=== PATIENT | female | born 1935 | race Caucasian/White ===

== ENCOUNTER 2022-09-24 13:14 | Inpatient (IN) ==
[2022-09-24] MEDS ORDERED: ACETAMINOPHEN 325 MG TABLET PO PRN (13:25)
[2022-09-24] MEDS ORDERED: SENNOSIDES 1 TABLET PO PRN (13:25)
[2022-09-24] MEDS ORDERED: METOPROLOL TARTRATE 5 MG/5 ML VIAL IV PRN (13:25)
[2022-09-24] MEDS ORDERED: MAGNESIUM SULFATE 2 GM/50 ML BAG IV PRN (13:25)
[2022-09-24] MEDS ORDERED: POTASSIUM CHLORIDE 20 MEQ TABLET PO PRN ×2 (13:25)
[2022-09-24] MEDS ORDERED: POLYETHYLENE GLYCOL 3350 17 GM PACKET PO PRN (13:25)
[2022-09-24] MEDS ORDERED: POTASSIUM CHLORIDE 40 MEQ in DEXTROSE 5% IN WATER 500 ML IV PRN (13:25)
[2022-09-24] MEDS ORDERED: ONDANSETRON 4 MG/2 ML VIAL IV PRN (13:25)
[2022-09-24] MEDS ORDERED: IPRATROPIUM/ALBUTEROL 3 ML AMPUL.NEB NEB PRN (13:25)
--- NOTE | 2022-09-24 13:25 | Internal Med History&Physical ---
HPI History of Present Illness Patient information: Note initiated : 09/24/22 at 1:25 pm Service Date, if different from initiated Date: [] Patient: Rosy Bai a 87 y/o F admitted on for Hip Fracture. Chief Complaint: [] History of present illness: Ms. Bai is a 87 year old F Presents to [facility] after a fall. Patient was visiting family when she tripped on the gravel falling on her left hip with immediate pain and unable to bear weight. Patient did not hit her head. She is on Eliquis for atrial fibrillation and last took this morning. Also has a history of chronic kidney disease hypertension hypothyroidism. Denies chest pain shortness of breath, headache. Vital signs are stable. Case is discussed with Dr. Coles who will perform orthopedic repair at [facility]. Review of Systems: Pertinent positives as above. Denies headache/fever/chills/nausea/vomiting/chest or abdominal pain/cough/dyspnea/diarrhea. Remaining 10 point review of system reviewed negative PHYSICAL EXAM General: Alert, Awake, No acute Distress Eyes/N/T: EOMI, no scleral icterus, PERRL, Head/Neck: neck supple, full ROM, normocephalic atraumatic CV: irreg, No murmurs, normal s1/s2 Pulm: Clear b/l, no wheezing/rhonchi/rales, no respiratory distress Abd: soft, nontender, +BS x4 Ext: no clubbing/cyanosis/edema, nontender Neuro: Alert, CN 2-12 grossly intact, no focal deficits, moves all extremities, , sensations intact b/l upper/lower Psychiatric: Skin: warm/dry, normal color PFSH PFSH All Active Problems (Updated 03/01/21 @ 09:33 by OLSET) Pyuria (Acute) History of foot surgery (Chronic ~03/2000) Status post D&C (Chronic ~1987) History of hernia repair (Chronic) History of tonsillectomy (Chronic ~1943) History of cholecystectomy (Chronic ~1991) History of bladder repair surgery (Chronic ~1986) History of meniscectomy of right knee (Chronic ~1990) History of lobectomy of thyroid (Chronic ~1976) History of colonoscopy (Chronic ~05/2016) Glaucoma (Chronic) Hyperthyroidism (Chronic) Hypertension (Chronic) Hyperlipidemia (Chronic) Anemia (Chronic) Postmenopausal status (Chronic) Urinary frequency (Chronic) Osteoarthritis of right knee (Chronic) Low back pain (Acute) Degenerative joint disease (Chronic) Seborrheic keratosis (Chronic) Adenomatous colon polyp (Chronic) Recurrent UTI (Chronic) Medical History Adenomatous colon polyp Anemia Degenerative joint disease Spine Glaucoma Hyperlipidemia Hypertension Hyperthyroidism Low back pain Osteoarthritis of right knee Postmenopausal status Recurrent UTI Seborrheic keratosis Urinary frequency Surgical History History of bladder repair surgery (~1986) History of cholecystectomy (~1991) History of colonoscopy (~05/2016) Dr. Izaguirre History of foot surgery (~03/2000) Left History of hernia repair History of lobectomy of thyroid (~1976) Right History of meniscectomy of right knee (~1990) History of tonsillectomy (~1943) Status post D&C (~1987) Family History Mother Heart disease Osteoporosis Sister Breast cancer Other Hypertension Stroke Social History marital status: unknown occupational status: retired physical activity: walking alcohol intake frequency: does not drink substance use type: does not use seatbelt use: always MEDS/ALLERGIES Home Medications and Allergies Home Medications Medication Instructions Recorded Confirmed Type brimonidine 0.1 % eye drops 1 drp ophthalmic (eye) TID 03/04/20 09/24/22 History (Alphagan P) conjugated estrogens 0.625 mg/gram 0.625 mg vaginal .2xWEEK 03/04/20 09/24/22 History vaginal cream (Premarin) latanoprost 0.005 % eye drops 1 drp ophthalmic (eye) QHS 03/04/20 09/24/22 History levothyroxine 100 mcg tablet 100 mcg PO QDAY 03/04/20 09/24/22 History oxybutynin chloride 5 mg tablet 5 mg PO BID 03/04/20 09/24/22 History pravastatin 40 mg tablet 40 mg PO QDAY 03/04/20 09/24/22 History timolol 0.5 % eye drops 1 drp ophthalmic (eye) QAM 03/04/20 09/24/22 History metoprolol succinate 50 mg 50 mg PO QDAY 09/24/22 09/24/22 History tablet,extended release 24 hr Allergies Allergy/AdvReac Type Severity Reaction Status Date / Time enalaprilat [From Vasotec] Allergy Intermediate Itching Verified 09/24/22 16:01 Sulfa Allergy Intermediate Itching Uncoded 09/24/22 16:02 A/P Narrative A/P Narrative: A: *Left hip fracture: *Chronic atrial fibrillation: On Eliquis/BB *CKD III: *HTN/HLD: *Hypothyroidism: Continue Synthroid *GERD: P: -Dr. Coles for orthopedic repair -Pain control -Monitor H&H/urine output/renal function -Monitor replace electrolytes as needed -check UA -Continue home BB, statin -Home medication reconciliation -PT/OT -CM for placement needs -ppx: SCD, Eliquis held for surgery and postop per Ortho / home PPI Time Spent With Patient Time: Total time spent is greater than 50% in coordination of care (as documented) at patient's floor/unit and/or counseling patient: Initial: Total time with patient: 55 - 74 minutes
[2022-09-24] MEDS: morphine 4 MG/ML VIAL IV PRN (15:58)
[2022-09-24] MEDS: 0.9 % SODIUM CHLORIDE 10 ML SYRINGE IV SCH ×3 (18:38→21:08)
[2022-09-24 19:08] LABS: Appearance,Urine HAZY (Clear); Bilirubin,Urine Negative (Negative); Calcium Oxalate Crystals,Urine FEW /hpf; Color,Urine AMBER; Culture Indicated,Urine yes; Glucose,Urine (UA) Negative (Negative); Ketones,Urine 5 mg/dL (Negative); Leukocyte Esterase,Urine 75 /uL (Negative); Mucus,Urine MANY /hpf; Nitrate,Urine Negative (Negative); Protein,Urine 30 mg/dL (Negative); Specific Gravity,Urine 1.032 (1.000-1.035); Urine Hyaline Cast 3 /lph (0-2); Urine RBC 111 /hpf (0-3); Urine Squamous Epithelial Cell < 1 /hpf (0-4); Urine WBC 16 /hpf (0-4); Urobilinogen,Urine Negative
[2022-09-24] MEDS: HYDROcodone/APAP 5/325MG TABLET PO PRN ×2 (19:19→23:59)
[2022-09-24] MEDS: DOCUSATE SODIUM 100 MG CAPSULE PO SCH (20:24)
[2022-09-24] MEDS: OXYBUTYNIN CHLORIDE 5 MG TABLET PO SCH (20:24)
[2022-09-24] MEDS: Brimonidine [Alphagan P] 0.1 % drops OP SCH (20:28)
[2022-09-24] MEDS: cefTRIAXone 1 GM VIAL IV SCH (21:08)
[2022-09-25] MEDS: morphine 4 MG/ML VIAL IV PRN (02:14)
[2022-09-25] MEDS: 0.9 % SODIUM CHLORIDE 10 ML SYRINGE IV SCH ×3 (05:54→21:33)
[2022-09-25 06:35] LABS: Basophils # (Auto) 0.04 K/mcL (0.00-0.30); Basophils % (Auto) 0.5 % (0.0-2.0); Eosinophils # (Auto) 0.17 K/mcL (0.00-0.70); Hemoglobin 12.6 g/dL (11.2-15.7); Lymphocytes # (Auto) 1.56 K/mcL (1.50-4.80); Lymphocytes % (Auto) 18.6 % (15.5-49.0); Mean Cell Volume 96.4 fL (80.0-100.0); Mean Corpuscular HGB Conc 31.5 g/dL (31.0-36.0); Mean Platelet Volume 9.7 fL (8.8-12.5); Monocytes # (Auto) 0.64 K/mcL (0.10-0.90); Monocytes % (Auto) 7.6 % (1.0-12.0); Neutrophils % (Auto) 70.9 % (38.0-78.0); Platelet Count 109 K/mcL (140-440); RBC 4.15 M/mcL (3.59-5.38); WBC 8.4 K/mcL (4.5-11.0)
[2022-09-25 06:57] LABS: ALT/SGPT 13 U/L (<40); AST/SGOT 22 U/L (<32); Albumin 3.4 gm/dL (3.2-5.2); Albumin/Globulin Ratio 1.4 (1.0-2.3); Alkaline Phosphatase 59 U/L (39-117); Bilirubin,Direct 0.3 mg/dL (<0.3); Bilirubin,Total 0.9 mg/dL (0.1-1.0); Blood Urea Nitrogen 34 mg/dL (8-23); Calcium 8.8 mg/dL (8.6-10.4); Carbon Dioxide 29 mmol/L (22-30); Chloride 101 mmol/L (96-108); Globulin 2.4 gm/dL (2.2-3.7); Glomerular Filtration Rate 51; Glucose 86 mg/dL (70-105); Lactate Dehydrogenase 220 U/L (135-225); Phosphorous 4.3 mg/dL (2.5-4.5); Triglycerides 65 mg/dL (<150)
[2022-09-25 06:59] LABS: INR 1.3 (0.9-1.1); Prothrombin Time 16.6 sec (11.9-14.5)
[2022-09-25] MEDS ORDERED: SCOPOLAMINE 1 PATCH PATCH TOPICAL PRN (07:00)
[2022-09-25] MEDS ORDERED: 0.9 % SODIUM CHLORIDE 250 ML IV ONE (07:49)
[2022-09-25] MEDS ORDERED: ROPIVACAINE HCL/PF 20 ML VIAL IJ ONE (07:50)
[2022-09-25] MEDS ORDERED: DEXAMETHASONE 10 MG/ML VIAL ONE (07:50)
[2022-09-25] MEDS ORDERED: PROPOFOL 200 MG/20 ML VIAL IV ONE (07:50)
[2022-09-25] MEDS ORDERED: PHENYLephrine 1 MG/10 ML SYRINGE (ANEST) ONE (07:50)
[2022-09-25] MEDS ORDERED: KETAMINE 50 MG/ML Syringe (ANEST) IV ONE (07:50)
[2022-09-25] MEDS ORDERED: MAGNESIUM SULFATE 2 GM/50 ML BAG IV ONE (07:50)
[2022-09-25] MEDS ORDERED: ONDANSETRON 4 MG/2 ML VIAL ONE (07:50)
[2022-09-25] MEDS ORDERED: TRANEXAMIC ACID 1,000 MG/10 ML VIAL ONE (07:50)
[2022-09-25] MEDS ORDERED: LIDOCAINE HCL/PF 100 MG/5 ML SYRINGE IV ONE (07:50)
--- NOTE | 2022-09-25 07:50 | Internal Med Progress Note ---
SUBJECTIVE Subjective Patient information: Note initiated : 09/25/22 at 7:45 am Service Date, if different from initiated Date: [] Patient: Rosy Bai a 87 y/o F admitted on 09/24/22 for Possible Broken Hip. Chief Complaint: [] Interval history: History of present illness: Ms. Bai is a 87 year old F Presents to [facility] after a fall. Patient was visiting family when she tripped on the gravel falling on her left hip with immediate pain and unable to bear weight. Patient did not hit her head. She is on Eliquis for atrial fibrillation and last took this morning. Also has a history of chronic kidney disease hypertension hypothyroidism. Denies chest pain shortness of breath, headache. Vital signs are stable. Case is discussed with Dr. Coles who will perform orthopedic repair at [facility]. 09/25 Patient postop in recovery. Patient tolerated the procedure well. No overnight event or new complaints. Monitor urine output and vitals. Review of Systems: Pertinent positives as above. Denies headache/fe juan/chills/nausea/vomiting/chest or abdominal pain/cough/dyspnea/diarrhea. PHYSICAL EXAM General: Alert, Awake, No acute Distress Eyes/N/T: EOMI, no scleral icterus, Head/Neck: neck supple, full ROM, CV: irreg, No murmurs, Pulm: Clear b/l, no wheezing/rhonchi/rales, no respiratory distress Abd: soft, nontender, +BS x4 Ext: no clubbing/cyanosis/edema, nontender Neuro: Alert, no focal deficits, moves all extremities, , sensations intact b/l upper/lower Psychiatric: Skin: warm/dry, normal color Constitutional Vitals: Vital Signs Temp Pulse Resp BP Pulse Ox O2 Del Method O2 Flow Rate 97.5 F 90 16 125/77 94 Nasal Cannula 1 09/25/22 04:09 09/25/22 07:41 09/25/22 07:41 09/25/22 07:41 09/25/22 07:41 09/25/22 07:41 09/25/22 07:41 Period Temp Pulse Resp BP Sys/Scott Pulse Ox O2 Del Method O2 Flow Rate Last 24 Hr 97.4 F-98.1 F 82-90 16-18 106-125/68-77 92-94 Nasal Cannula- Room Air 1-4 Intake and Output 09/24/22 09/25/22 09/25/22 19:59 03:59 11:59 Intake Total 320 400 Output Total 150 100 Balance 170 400 -100 Weight 56.971 kg Intake & Output: Intake & Output 09/24/22 09/25/22 09/25/22 19:59 03:59 11:59 Intake Total 320 400 Output Total 150 100 Balance 170 400 -100 Weight 56.971 kg Intake: Oral 320 400 Output: Urine Catheter Amount 150 100 Other: Meal Dinner Percent of Meal Consumed 25% Urine Appearance Cloudy Cloudy Uretheral (Perales) Cloudy Urine Color Dark Yellow Dark Yellow Uretheral (Perales) Dark Yellow Urine Odor Normal OBJ DATA Labs 09/25/22 05:24 09/25/22 05:24 Labs: Abnormal Lab Results 09/25/22 09/25/22 09/25/22 05:24 05:24 05:24 Plt Count 109 L PT 16.6 H INR 1.3 H BUN 34 H Direct Bilirubin 0.3 H Total Protein 5.8 L Urine Appearance Urine Protein Urine Ketones Ur Leukocyte Esterase Urine RBC Urine WBC Calcium Oxalate Crystal Hyaline Casts Urine Mucus 09/24/22 18:40 Plt Count PT INR BUN Direct Bilirubin Total Protein Urine Appearance Hazy A Urine Protein 30 A Urine Ketones 5 A Ur Leukocyte Esterase 75 A Urine RBC 111 H Urine WBC 16 H Calcium Oxalate Crystal Few A Hyaline Casts 3 H Urine Mucus Many A Meds: Medications Acetaminophen (Acetaminophen 325 Mg Tablet) 650 mg PO Q6HP PRN; Protocol PRN Reason: Per Pain Protocol/Fever > 101 Hydrocodone Bitart/Acetaminophen (Hydrocodone/Apap 5/325mg Tablet) 1 tab PO Q4HP PRN PRN Reason: PAIN LEVEL 3-6 Last Admin: 09/24/22 23:59 Dose: 1 tab Albuterol/Ipratropium (Ipratropium/Albuterol 3 Ml Ampul.Neb) 3 ml NEB Q4HP PRN PRN Reason: Shortness Of Breath Atorvastatin Calcium (Atorvastatin 10 Mg Tablet) 10 mg PO QDAY DAGMAR Ceftriaxone Sodium (Ceftriaxone 1 Gm Vial) 1 gm IV Q24H DAGMAR; Protocol Last Admin: 09/24/22 21:08 Dose: 1 gm Docusate Sodium (Docusate Sodium 100 Mg Capsule) 100 mg PO BID DAGMAR Last Admin: 09/24/22 20:24 Dose: 100 mg Potassium Chloride 40 meq/ (Dextrose) 520 mls @ 130 mls/hr IV UD PRN PRN Reason: Potassium < 3 Magnesium Sulfate (Magnesium Sulfate) 2 gm in 50 mls @ 50 mls/hr IV UD PRN PRN Reason: Magnesium </= 1.6 Levothyroxine Sodium (Levothyroxine 100 Mcg Tablet) 100 mcg PO QAMAC [facility] Metoprolol Succinate (Metoprolol Succinate 50 Mg Tab.Xl.24h) 50 mg PO QDAY [facility] Metoprolol Tartrate (Metoprolol Tartrate 5 Mg/5 Ml Vial) 5 mg IV Q2HP PRN PRN Reason: Tachyarrhythmias HR>110 Morphine Sulfate (Morphine 4 Mg/Ml Vial) 0 mg IV Q3HP PRN PRN Reason: Pain Last Admin: 09/25/22 02:14 Dose: 1 mg Ondansetron HCl (Ondansetron 4 Mg/2 Ml Vial) 4 mg IV Q4HP PRN PRN Reason: Nausea And Vomiting Last Admin: 09/24/22 20:24 Dose: 4 mg Oxybutynin Chloride (Oxybutynin Chloride 5 Mg Tablet) 5 mg PO BID [facility] Last Admin: 09/24/22 20:24 Dose: 5 mg Brimonidine [ Alphagan P] 0.1 % Drops 1 dose OP TID [facility] Last Admin: 09/24/22 20:28 Dose: Not Given Timolol 0.5 % Drops 1 dose OP QAM [facility] Polyethylene Glycol (Polyethylene Glycol 3350 17 Gm Packet) 17 gm PO DAILYP PRN PRN Reason: Constipation Potassium Chloride (Potassium Chloride 20 Meq Tablet) 40 meq PO UD PRN PRN Reason: Potssium is 3-3.5 Potassium Chloride (Potassium Chloride 20 Meq Tablet) 40 meq PO UD PRN PRN Reason: Potassium < 3 Scopolamine (Scopolamine 1 Patch Patch) 1 patch TOPICAL PREOP PRN PRN Reason: Nausea And Vomiting Senna (Sennosides 1 Tablet) 2 tab PO DAILYP PRN PRN Reason: Constipation Sodium Chloride (0.9 % Sodium Chloride 10 Ml Syringe) 10 ml IV Q8 [facility] Last Admin: 09/25/22 05:54 Dose: 10 ml A/P Narrative A/P Narrative: A: *Left hip fracture: s/p ORIF (09/25) *UTI: *Chronic atrial fibrillation: On Eliquis/BB *CKD III: *HTN/HLD: *Hypothyroidism: Continue Synthroid *GERD: P: -Dr. Coles for orthopedic repair -Pain control -Monitor H&H/urine output/renal function -Monitor replace electrolytes as needed -Rocephin, pending UC -Continue home BB, statin -PT/OT -CM for placement needs -ppx: SCD, Eliquis held for surgery and postop per Ortho / home PPI Time Spent With Patient Time: Total time spent is greater than 50% in coordination of care (as documented) at patient's floor/unit and/or counseling patient: QUALITY VTE Deep Vein Thrombosis/Pulmonary Embolism Present on Admission: No
[2022-09-25] MEDS ORDERED: 0.9 % SODIUM CHLORIDE 250 ML IV SCH (08:00)
[2022-09-25] MEDS ORDERED: 0.9 % SODIUM CHLORIDE 1,000 ML IV SCH (08:00)
[2022-09-25] MEDS ORDERED: ceFAZolin 2 GM in DEXTROSE 5% IN WATER 50 ML IV SCH ×2 (08:12→09:00)
[2022-09-25] MEDS ORDERED: ONDANSETRON 4 MG/2 ML VIAL IV PRN (08:37)
[2022-09-25] MEDS ORDERED: fentaNYL 100 MCG/2 ML VIAL IV PRN (08:37)
[2022-09-25] MEDS ORDERED: NALOXONE HCL 0.4 MG/ML VIAL IV PRN (08:37)
[2022-09-25] MEDS ORDERED: PROMETHAZINE 25 MG/ML VIAL IV PRN (08:37)
[2022-09-25] MEDS ORDERED: MEPERIDINE 25 MG/ML VIAL IV PRN (08:37)
[2022-09-25] MEDS ORDERED: diphenhydrAMINE 50 MG/ML VIAL IV PRN (08:37)
[2022-09-25] MEDS ORDERED: IPRATROPIUM/ALBUTEROL 3 ML AMPUL.NEB NEB PRN (08:37)
[2022-09-25] MEDS ORDERED: LACTATED RINGERS 250 ML IV PRN (08:37)
[2022-09-25] MEDS ORDERED: ACETAMINOPHEN 1,000 MG/100 ML BAG IV ONE (08:37)
[2022-09-25] MEDS ORDERED: LACTATED RINGERS 1,000 ML IV SCH (08:45)
[2022-09-25] MEDS ORDERED: FLEETS ADULT ENEMA PR PRN (08:53)
[2022-09-25] MEDS ORDERED: BISACODYL 10 MG SUPP.RECT PR PRN (08:53)
[2022-09-25] MEDS ORDERED: BENZOCAINE/MENTHOL 1 LOZENGE PO PRN (08:53)
[2022-09-25] MEDS ORDERED: MAGNESIUM HYDROXIDE 30 ML ORAL.SUSP PO PRN (08:53)
--- NOTE | 2022-09-25 08:53 | Brief Operative Note ---
Brief Operative Note Date of procedure: 09/25/22 Pre-op diagnosis: Left displaced femoral neck fracture Post-op diagnosis: same Procedure: Open treatment with prosthetic hemiarthroplasty of left femoral neck fracture Grafts/Implants: Yes (Depuy Actis size 5 std femoral stem, +5 x 51 bipolar femoral head) Anesthesia: spinal Findings: displaced femoral neck fracture, good bone density Complications: none Surgeon: Mustapha Coles Industrial Education Teacher: Aneesh Cooper Estimated blood loss (cc): 150 Specimens Removed/Pathology: none sent Condition: stable Disposition: PACU
--- NOTE | 2022-09-25 09:56 | Consultation ---
DATE OF CONSULTATION: 09/25/2022 REQUESTING PROVIDER: Cooper Gaspar DO CONSULTING PROVIDER: Mustapha Coles MD REASON FOR CONSULTATION: Left hip fracture. HISTORY OF PRESENT ILLNESS: This is an 87-year-old female who tripped on her gravel driveway and fell, landing on her left hip. She had severe pain and unable to bear weight. She denied loss of consciousness. She was taken to [facility] and x-rays taken, which showed a displaced femoral neck fracture. She was then transferred down for definitive orthopedic care. She denies any other injury. Pain is worse with movement, better with immobility. PAST MEDICAL HISTORY: Positive for hypertension; hypothyroidism; atrial fibrillation, reportedly with Eliquis dosed yesterday morning; and glaucoma. MEDICATIONS: Can be reviewed in the chart, but significant for the Eliquis. ALLERGIES: ENALAPRIL AND SULFA. PAST SURGICAL HISTORY: Foot surgery, D and C, hernia repair, tonsillectomy, cholecystectomy, bladder repair, right knee meniscectomy, and thyroid lobectomy. SOCIAL HISTORY: She lives in [facility]. No alcohol or tobacco use. FAMILY HISTORY: Positive for mother with heart disease and osteoporosis. Sister with breast cancer. PHYSICAL EXAMINATION: VITAL SIGNS: This morning were blood pressure 125/77, pulse 90, respirations 16, and saturating 94% on 1 liter oxygen. GENERAL APPEARANCE: She appears her stated age, in no acute distress. She is oriented to person and place. Mood and affect are appropriate. HEART: Irregular. LUNGS: Clear bilaterally upper extremities and right lower extremity show no obvious evidence of injury and are normal to inspection, range of motion and stability and strength. Left lower extremity shows shortening and rotation with exquisite tenderness to any movement and grossly unstable. X-ray reviewed, shows a completely displaced left femoral neck fracture. IMPRESSION: Closed left femoral neck fracture in an 87-year-old otherwise active female. PLAN: I recommend proceeding with open treatment with prosthetic hemiarthroplasty of the left femoral neck fracture. I discussed with her and her daughter's risks of surgery, which include, but not limited to bleeding, possibly requiring transfusion; infection, possibly requiring implant removal and prolonged IV antibiotics; injury to nerves, blood vessels, other surrounding structures; anesthetic risks; leg length discrepancy; dislocation; fracture; DVT and pulmonary embolus risks; and the possibility of needing further surgery. She understands and wished to proceed. We are going to go ahead with that this morning. [email or web address] Job ID: [id number] Doc ID: [id number] Mustapha Coles MD
[2022-09-25] MEDS: LEVOTHYROXINE 100 MCG TABLET PO SCH (11:09)
[2022-09-25] MEDS: DOCUSATE SODIUM 100 MG CAPSULE PO SCH ×2 (12:02→21:30)
[2022-09-25] MEDS: ATORVASTATIN 10 MG TABLET PO SCH (12:02)
[2022-09-25] MEDS: OXYBUTYNIN CHLORIDE 5 MG TABLET PO SCH ×2 (12:02→21:30)
[2022-09-25] MEDS: METOPROLOL SUCCINATE 50 MG TAB.XL.24H PO SCH (12:03)
[2022-09-25] MEDS: HYDROcodone/APAP 5/325MG TABLET PO PRN ×2 (12:05→21:30)
--- NOTE | 2022-09-25 14:16 | XRay Report ---
CLINICAL INFORMATION: post op-left hip fracture COMPARISON: None. FINDINGS: Unipolar left hip prostheses is anatomically aligned. Mild degenerative changes seen in the right and both SI joints. Soft tissue swelling over the surgical site noted. IMPRESSION: Left unipolar hip prosthesis in anatomical alignment. Interpreted and Authenticated by: Eric Hodges 09/25/22
[2022-09-25] MEDS: cefTRIAXone 1 GM VIAL IV SCH (14:45)
[2022-09-25] MEDS: Timolol 0.5 % drops OP SCH (14:46)
[2022-09-25] MEDS: Brimonidine [Alphagan P] 0.1 % drops OP SCH ×3 (14:46→21:33)
[2022-09-25] MEDS: ceFAZolin 1 GM VIAL IV SCH (16:21)
[2022-09-25] MEDS ORDERED: LATANOPROST OPHTH DROPS 2.5ML BOTTLE OU SCH (21:00)
[2022-09-26] MEDS: ceFAZolin 1 GM VIAL IV SCH (00:04)
[2022-09-26] MEDS: 0.9 % SODIUM CHLORIDE 10 ML SYRINGE IV SCH ×3 (04:06→20:15)
[2022-09-26] MEDS: LEVOTHYROXINE 100 MCG TABLET PO SCH (06:54)
[2022-09-26] MEDS: HYDROcodone/APAP 5/325MG TABLET PO PRN ×2 (07:13→12:12)
[2022-09-26 07:18] LABS: Blood Urea Nitrogen 32 mg/dL (8-23); Calcium 8.7 mg/dL (8.6-10.4); Carbon Dioxide 27 mmol/L (22-30); Chloride 98 mmol/L (96-108); Glomerular Filtration Rate 58; Glucose 222 mg/dL (70-105)
--- NOTE | 2022-09-26 07:41 | Operative Note ---
DATE OF OPERATION: 09/25/2022 DATE OF PROCEDURE: 09/25/2022 PREOPERATIVE DIAGNOSIS: Left displaced femoral neck fracture. POSTOPERATIVE DIAGNOSIS: Left displaced femoral neck fracture. PROCEDURE PERFORMED: Open treatment with prosthetic hemiarthroplasty of the left femoral neck fracture using a DePuy Actis size 5 standard offset femoral stem; a +5, 28 mm inner head with a 51 mm bipolar head. SURGEON: Mustapha Coles M.D. TELESALES ADVISOR: Aneesh Cooper PA-C. This providers expertise and technical skill were required throughout the case. The PA assisted with preoperative coordination, intraoperative retraction, wound closure, and dressing and splint application, as well as postoperative documentation and care coordination. ANESTHESIA: General. DRAINS: None. SPECIMEN: Femoral head, which was discarded. ESTIMATED BLOOD LOSS: 150 mL. COMPLICATIONS: None. POSTOPERATIVE CONDITION: Stable. INDICATIONS FOR SURGERY: This is an 87-year-old female who yesterday sustained a ground level fall. She had severe pain and inability to bear weight. She reportedly was taking Eliquis for atrial fibrillation and had taken it that same day. She was transferred down for definitive orthopedic care. FINDINGS AT SURGERY: Displaced femoral neck fracture with remarkably good bone density. PROCEDURE IN DETAIL: The patient had been seen preoperatively and informed consent had been obtained after discussion of risks and benefits of surgery. Risks including, but not limited to, bleeding, possibly requiring transfusion; infection, possibly requiring implant removal and prolonged IV antibiotics; injury to nerves, blood vessels, other surrounding structures; anesthetic risks; dislocation, leg length discrepancy, fracture; DVT and pulmonary embolus risks; and the possibility of needing further revision surgery. She understood these risks and wished to proceed. The patient was taken to the operating room. General anesthesia induced. She was carefully positioned in the right lateral decubitus position and pressure points carefully padded. The left hip and lower extremity were carefully prepped and draped in normal sterile fashion and a timeout was performed verifying patient name, operative site, and plan. Ioban was used to cover all skin surfaces and a standard posterior approach incision was made with scalpel through skin and subcutaneous tissue. Hemostasis obtained with Bovie cautery, continued sharply down onto the IT band. We then undermined anterior and posterior and then irrigated with IrriSept. We incised the IT band in line with the skin incision, and then a Charnley retractor was placed. Trochanteric bursal tissue was removed and then fat was swept off of the short external rotators and then this was released off of their insertion into the posterior femur. I then T'd this with the capsule up to the acetabular rim. I did a freshening neck cut at the lowest level of the fracture. Fragments were removed and then a corkscrew was placed in the femoral head and this was levered out. This fit through a 52, but not through a 51, so we trialed a 51 after removing bone fragments from the acetabulum. This fit well, so we went ahead and exposed the proximal femur. A box osteotome was used to gain canal entry and then again began sequentially broaching with the ACTIS broaches. We initially stopped at a 4, which seated at our neck cut. I trialed the standard +1.5 head ball. This clearly seems short and not enough tension, so I jumped up to a 7.5 neck. This was better; however, still not particularly good tensioned, so at this point, I felt it was necessary to upsize our stem, so we removed the 4 trial and went to a 5. This did seat quite a bit higher. We went ahead then and removed this and opened a 5 standard offset ACTIS stem. I irrigated IrriSept down the femoral canal. After waiting a minute I pulse lavaged with saline, and then impacted the stem. This sat with our collar about 4 mm above the neck cut. I then trialed the 1.5 head ball. This reduced still relatively easily and leg seemed a touch short, so chose to open a +5 implant. This was assembled into a bipolar with a 51 outer head. I irrigated IrriSept on the stem. After a minute saline was irrigated and then we carefully dried the stem and then impacted the bipolar head on. We reduced the hip. It did not reduce excessive tension, felt to be adequate tension. I checked leg lengths. It looked like we were equal. I checked stability with flexion up to 90, and internal rotation to 90 and this was stable throughout, so we went ahead and placed the leg on a padded Alvardao. I irrigated IrriSept again, after a minute pulse lavaged with saline. Posterior capsule was repaired with a #5 FiberWire II [id number]. We then removed the Charnley and closed the IT band with two running #1 Vicryl stitches. Final IrriSept irrigation was done, after a minute final pulse lavage, and then fat was closed with #1 Vicryl, then a 2-0 Monocryl for subcutaneous, billy for skin. The leg was placed in an abductor wedge and patient was then turned supine, awakened, extubated, and transferred to recovery in stable condition. [email or web address] Job ID: [id number] Doc ID: [id number] Mustapha Coles MD
[2022-09-26] MEDS: DOCUSATE SODIUM 100 MG CAPSULE PO SCH ×2 (08:29→20:14)
[2022-09-26] MEDS: OXYBUTYNIN CHLORIDE 5 MG TABLET PO SCH ×2 (08:29→20:15)
[2022-09-26] MEDS: ATORVASTATIN 10 MG TABLET PO SCH (08:29)
[2022-09-26] MEDS: METOPROLOL SUCCINATE 50 MG TAB.XL.24H PO SCH (08:29)
[2022-09-26] MEDS: ENOXAPARIN 40 MG/0.4 ML SYRINGE SQ SCH (08:30)
--- NOTE | 2022-09-26 09:03 | XRay Report ---
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 This is a chronic stable finding, seen on prior abdomen CT done on 10/12/21. This is causing mild compressive atelectasis of the left lower lobe. There are streaky linear opacities in the right lung base which have fluctuated from one exam to the next and may be a combination of scar or discoid atelectasis. There is a tiny right-sided pleural effusion. The upper lung esteban are clear. There is no pulmonary vascular congestion. The heart size is within normal limits. A moderate rotatory scoliotic curvature is present in the thoracic and lumbar spine. Comparison with the most recent chest x-ray done on 05/26/22 shows improved aeration in both lung bases at this time. IMPRESSION: Large hiatus hernia Scar versus discoid atelectasis in both lung bases. Interpreted and Authenticated by: Yohan Anguiano 09/26/22
[2022-09-26] MEDS: Brimonidine [Alphagan P] 0.1 % drops OP SCH (09:20)
[2022-09-26] MEDS: Timolol 0.5 % drops OP SCH ×2 (09:21→20:15)
--- NOTE | 2022-09-26 10:41 | Internal Med Progress Note ---
SUBJECTIVE Subjective Patient information: Note initiated : 09/26/22 at 10:37 am Service Date, if different from initiated Date: [] Patient: Rosy Bai a 87 y/o F admitted on 09/24/22 for Possible Broken Hip. Chief Complaint: [] Additional PMFSH (Level 3 Only): Ms. Bai is a 87 year old F Presents to [facility] after a fall. Patient was visiting family when she tripped on the gravel falling on her left hip with immediate pain and unable to bear weight. Patient did not hit her head. She is on Eliquis for atrial fibrillation and last took this morning. Also has a history of chronic kidney disease hypertension hypothyroidism. Denies chest pain shortness of breath, headache. Vital signs are stable. Case is discussed with Dr. Coles who will perform orthopedic repair at [facility]. 09/25 Patient postop in recovery. Patient tolerated the procedure well. No overnight event or new complaints. Monitor urine output and vitals. 09/26. Patient is status post left hemiarthroplasty. Reported she ambulated with PT. She is requiring 4 L nasal cannula oxygen, low inspiratory volume. She does not use oxygen at baseline. Will order chest x-ray. Lab work from this morning not available Review of Systems: Pertinent positives as above. Denies headache/fever/chills/nausea/vomiting/chest or abdominal pain/c ough/dyspnea/diarrhea. PHYSICAL EXAM General: Alert, Awake, No acute Distress Eyes/N/T: EOMI, no scleral icterus, Head/Neck: neck supple, full ROM, CV: irreg, No murmurs, Pulm: Clear b/l, no wheezing/rhonchi/rales, no respiratory distress Abd: soft, nontender, +BS x4 Ext: Left hip status post hemiarthroplasty. Dressing on and appears clean, dry and intact, expected mild bruising Neuro: Alert, no focal deficits, moves all extremities, , sensations intact b/l upper/lower Psychiatric: Skin: warm/dry, normal color A: *Left hip displaced femoral neck fracture status post prosthetic hemiarthroplasty by Dr. Coles on 09/25 Acute hypoxic respiratory failure, requiring 4 L nasal cannula oxygen *UTI: Urine culture with no growth *Chronic atrial fibrillation: On Eliquis/BB *CKD III: *HTN/HLD: *Hypothyroidism: Continue Synthroid *GERD: P: -Continue pain control, PT OT Obtain CBC Obtain chest x-ray -Pain control -Monitor H&H/urine output/renal function -Monitor replace electrolytes as needed -We will discontinue ceftriaxone -Continue home BB, statin -CM for placement needs -ppx: SCD, Eliquis held for surgery and postop per Ortho / home PPI Disposition. SNF/swing bed Total time taken >50 min Constitutional Vitals: Vital Signs Temp Pulse Resp BP Pulse Ox O2 Del Method O2 Flow Rate 97.9 F 83 16 118/77 93 Nasal Cannula 4 09/26/22 07:56 09/26/22 07:56 09/26/22 07:56 09/26/22 07:56 09/26/22 07:56 09/26/22 07:56 09/26/22 07:56 Period Temp Pulse Resp BP Sys/Scott Pulse Ox O2 Del Method O2 Flow Rate Last 24 Hr 97.4 F-97.9 F 75-105 16-17 96-122/59-84 91-94 Nasal Cannula- Nasal Cannula 2-5 Intake and Output 09/25/22 09/26/22 09/26/22 19:59 03:59 11:59 Intake Total 1360 1400 Output Total 250 650 Balance 1110 750 Weight 68.901 kg Intake & Output: Intake & Output 09/25/22 09/26/22 09/26/22 19:59 03:59 11:59 Intake Total 1360 1400 Output Total 250 650 Balance 1110 750 Weight 68.901 kg Intake: IV 1000 Sodium Chloride 0.9% 1,000 ml @ 1000 75 mls/hr IV .[id number] [facility] Rx#: [id number] Oral 1360 400 Output: Urine Catheter Amount 250 650 Other: Meal Dinner Percent of Meal Consumed 25% Feeding Ability Independent Urine Appearance Clear Uretheral (Perales) Clear Urine Color Yellow Uretheral (Perales) Light Aviva Urine Odor Strong OBJ DATA Labs 09/25/22 05:24 09/26/22 05:14 Labs: Abnormal Lab Results 09/26/22 09/25/22 09/25/22 05:14 05:24 05:24 Plt Count 109 L PT INR BUN 32 H 34 H Glucose 222 H Direct Bilirubin 0.3 H Total Protein 5.8 L Urine Appearance Urine Protein Urine Ketones Ur Leukocyte Esterase Urine RBC Urine WBC Calcium Oxalate Crystal Hyaline Casts Urine Mucus 09/25/22 09/24/22 05:24 18:40 Plt Count PT 16.6 H INR 1.3 H BUN Glucose Direct Bilirubin Total Protein Urine Appearance Hazy A Urine Protein 30 A Urine Ketones 5 A Ur Leukocyte Esterase 75 A Urine RBC 111 H Urine WBC 16 H Calcium Oxalate Crystal Few A Hyaline Casts 3 H Urine Mucus Many A Meds: Medications Acetaminophen (Acetaminophen 325 Mg Tablet) 650 mg PO Q6HP PRN; Protocol PRN Reason: Per Pain Protocol/Fever > 101 Last Admin: 09/25/22 16:17 Dose: 650 mg Hydrocodone Bitart/Acetaminophen (Hydrocodone/Apap 5/325mg Tablet) 1 tab PO Q4HP PRN PRN Reason: PAIN LEVEL 3-6 Last Admin: 09/26/22 07:13 Dose: 1 tab Albuterol/Ipratropium (Ipratropium/Albuterol 3 Ml Ampul.Neb) 3 ml NEB Q4HP PRN PRN Reason: Shortness Of Breath Atorvastatin Calcium (Atorvastatin 10 Mg Tablet) 10 mg PO QDAY [facility] Last Admin: 09/26/22 08:29 Dose: 10 mg Bisacodyl (Bisacodyl 10 Mg Supp.Rect) 10 mg MO Q2-3DAYS PRN PRN Reason: Constipation Ceftriaxone Sodium (Ceftriaxone 1 Gm Vial) 1 gm IV Q24H [facility]; Protocol Last Admin: 09/25/22 14:45 Dose: 1 gm Docusate Sodium (Docusate Sodium 100 Mg Capsule) 100 mg PO BID [facility] Last Admin: 09/26/22 08:29 Dose: 100 mg Enoxaparin Sodium (Enoxaparin 40 Mg/0.4 Ml Syringe) 40 mg SQ DAILY [facility] Last Admin: 09/26/22 08:30 Dose: 40 mg Potassium Chloride 40 meq/ (Dextrose) 520 mls @ 130 mls/hr IV UD PRN PRN Reason: Potassium < 3 Magnesium Sulfate (Magnesium Sulfate) 2 gm in 50 mls @ 50 mls/hr IV UD PRN PRN Reason: Magnesium </= 1.6 Levothyroxine Sodium (Levothyroxine 100 Mcg Tablet) 100 mcg PO QAMAC [facility] Last Admin: 09/26/22 06:54 Dose: 100 mcg Magnesium Hydroxide (Magnesium Hydroxide 30 Ml Oral.Susp) 30 ml PO BIDP PRN PRN Reason: Constipation Last Admin: 09/25/22 21:32 Dose: 30 ml Metoprolol Succinate (Metoprolol Succinate 50 Mg Tab.Xl.24h) 50 mg PO QDAY [facility] Last Admin: 09/26/22 08:29 Dose: 50 mg Metoprolol Tartrate (Metoprolol Tartrate 5 Mg/5 Ml Vial) 5 mg IV Q2HP PRN PRN Reason: Tachyarrhythmias HR>110 Morphine Sulfate (Morphine 4 Mg/Ml Vial) 0 mg IV Q3HP PRN PRN Reason: Pain Last Admin: 09/25/22 02:14 Dose: 1 mg Ondansetron HCl (Ondansetron 4 Mg/2 Ml Vial) 4 mg IV Q4HP PRN PRN Reason: Nausea And Vomiting Last Admin: 09/24/22 20:24 Dose: 4 mg Oxybutynin Chloride (Oxybutynin Chloride 5 Mg Tablet) 5 mg PO BID [facility] Last Admin: 09/26/22 08:29 Dose: 5 mg Brimonidine Tartrate (0.2%) 1 dose OP QAM [facility] Timolol 0.5 % Drops 1 dose OP BID [facility] Latanoprostene ( (Vyzulta)) 1 dose OU QHS [facility] Polyethylene Glycol (Polyethylene Glycol 3350 17 Gm Packet) 17 gm PO DAILYP PRN PRN Reason: Constipation Potassium Chloride (Potassium Chloride 20 Meq Tablet) 40 meq PO UD PRN PRN Reason: Potssium is 3-3.5 Potassium Chloride (Potassium Chloride 20 Meq Tablet) 40 meq PO UD PRN PRN Reason: Potassium < 3 Senna (Sennosides 1 Tablet) 2 tab PO DAILYP PRN PRN Reason: Constipation Sodium Biphosphate/Sodium Phosphate (Fleets Adult Enema) 1 dose MO Q3-4DAYS PRN PRN Reason: Constipation Sodium Chloride (0.9 % Sodium Chloride 10 Ml Syringe) 10 ml IV Q8 [facility] Last Admin: 09/26/22 04:06 Dose: 10 ml Throat Lozenges (Benzocaine/Menthol 1 Lozenge) 1 lozenge PO PRN PRN PRN Reason: Sore Throat A/P Time Spent With Patient Time: Total time spent is greater than 50% in coordination of care (as documented) at patient's floor/unit and/or counseling patient: QUALITY VTE Deep Vein Thrombosis/Pulmonary Embolism Present on Admission: No
[2022-09-26] MEDS: cefTRIAXone 1 GM VIAL IV SCH (12:12)
--- NOTE | 2022-09-26 15:13 | Orthopedic Progress Note ---
SUBJECTIVE Subjective Patient information: Note initiated : 09/26/22 at 3:09 pm Service Date, if different from initiated Date: [] Patient: Rosy Bai 87 y/o F admitted on 09/24/22 for Possible Broken Hip. Chief Complaint: L hip pain Principal diagnosis: L hip femoral neck fx Constitutional Vitals: Vital Signs Temp Pulse Resp BP Pulse Ox O2 Del Method O2 Flow Rate 98.3 F 78 18 105/69 94 Nasal Cannula 4 09/26/22 11:39 09/26/22 11:39 09/26/22 11:39 09/26/22 11:39 09/26/22 11:39 09/26/22 11:39 09/26/22 11:39 Period Temp Pulse Resp BP Sys/Scott Pulse Ox O2 Del Method O2 Flow Rate Last 24 Hr 97.4 F-98.3 F 75-86 16-18 101-118/62-78 91-94 Nasal Cannula- Nasal Cannula 2-5 Intake and Output 09/26/22 09/26/22 09/26/22 03:59 11:59 19:59 Intake Total 1400 Output Total 650 Balance 750 Weight 151 lb 14.4 oz Patient Weight 09/27/22 03:59 Weight 151 lb 14.4 oz Intake & Output: Intake & Output 09/26/22 09/26/22 09/26/22 03:59 11:59 19:59 Intake Total 1400 Output Total 650 Balance 750 Weight 151 lb 14.4 oz Intake: IV 1000 Sodium Chloride 0.9% 1,000 ml @ 1000 75 mls/hr IV .[id number] [facility] Rx#: [id number] Oral 400 Output: Urine Catheter Amount 650 Other: Urine Appearance Clear Uretheral (Perales) Clear Urine Color Yellow Uretheral (Perales) Light Aviva Urine Odor Strong Additional findings Additional findings: Bandages c/d/i NVI-distal OBJ DATA Labs 09/25/22 05:24 09/26/22 05:14 Labs: Abnormal Lab Results 09/26/22 09/25/22 09/25/22 05:14 05:24 05:24 Plt Count 109 L PT INR BUN 32 H 34 H Glucose 222 H Direct Bilirubin 0.3 H Total Protein 5.8 L Urine Appearance Urine Protein Urine Ketones Ur Leukocyte Esterase Urine RBC Urine WBC Calcium Oxalate Crystal Hyaline Casts Urine Mucus 09/25/22 09/24/22 05:24 18:40 Plt Count PT 16.6 H INR 1.3 H BUN Glucose Direct Bilirubin Total Protein Urine Appearance Hazy A Urine Protein 30 A Urine Ketones 5 A Ur Leukocyte Esterase 75 A Urine RBC 111 H Urine WBC 16 H Calcium Oxalate Crystal Few A Hyaline Casts 3 H Urine Mucus Many A Meds: Medications Acetaminophen (Acetaminophen 325 Mg Tablet) 650 mg PO Q6HP PRN; Protocol PRN Reason: Per Pain Protocol/Fever > 101 Last Admin: 09/25/22 16:17 Dose: 650 mg Hydrocodone Bitart/Acetaminophen (Hydrocodone/Apap 5/325mg Tablet) 1 tab PO Q4HP PRN PRN Reason: PAIN LEVEL 3-6 Last Admin: 09/26/22 12:12 Dose: 1 tab Albuterol/Ipratropium (Ipratropium/Albuterol 3 Ml Ampul.Neb) 3 ml NEB Q4HP PRN PRN Reason: Shortness Of Breath Atorvastatin Calcium (Atorvastatin 10 Mg Tablet) 10 mg PO QDAY [facility] Last Admin: 09/26/22 08:29 Dose: 10 mg Bisacodyl (Bisacodyl 10 Mg Supp.Rect) 10 mg [place] Q2-3DAYS PRN PRN Reason: Constipation Ceftriaxone Sodium (Ceftriaxone 1 Gm Vial) 1 gm IV Q24H [facility]; Protocol Last Admin: 09/26/22 12:12 Dose: 1 gm Docusate Sodium (Docusate Sodium 100 Mg Capsule) 100 mg PO BID [facility] Last Admin: 09/26/22 08:29 Dose: 100 mg Enoxaparin Sodium (Enoxaparin 40 Mg/0.4 Ml Syringe) 40 mg SQ DAILY [facility] Last Admin: 09/26/22 08:30 Dose: 40 mg Potassium Chloride 40 meq/ (Dextrose) 520 mls @ 130 mls/hr IV UD PRN PRN Reason: Potassium < 3 Magnesium Sulfate (Magnesium Sulfate) 2 gm in 50 mls @ 50 mls/hr IV UD PRN PRN Reason: Magnesium </= 1.6 Levothyroxine Sodium (Levothyroxine 100 Mcg Tablet) 100 mcg PO QAMAC [facility] Last Admin: 09/26/22 06:54 Dose: 100 mcg Magnesium Hydroxide (Magnesium Hydroxide 30 Ml Oral.Susp) 30 ml PO BIDP PRN PRN Reason: Constipation Last Admin: 09/25/22 21:32 Dose: 30 ml Metoprolol Succinate (Metoprolol Succinate 50 Mg Tab.Xl.24h) 50 mg PO QDAY [facility] Last Admin: 09/26/22 08:29 Dose: 50 mg Metoprolol Tartrate (Metoprolol Tartrate 5 Mg/5 Ml Vial) 5 mg IV Q2HP PRN PRN Reason: Tachyarrhythmias HR>110 Morphine Sulfate (Morphine 4 Mg/Ml Vial) 0 mg IV Q3HP PRN PRN Reason: Pain Last Admin: 09/25/22 02:14 Dose: 1 mg Ondansetron HCl (Ondansetron 4 Mg/2 Ml Vial) 4 mg IV Q4HP PRN PRN Reason: Nausea And Vomiting Last Admin: 09/24/22 20:24 Dose: 4 mg Oxybutynin Chloride (Oxybutynin Chloride 5 Mg Tablet) 5 mg PO BID [facility] Last Admin: 09/26/22 08:29 Dose: 5 mg Brimonidine Tartrate (0.2%) 1 dose OP QAM [facility] Timolol 0.5 % Drops 1 dose OP BID [facility] Latanoprostene ( (Vyzulta)) 1 dose OU QHS [facility] Polyethylene Glycol (Polyethylene Glycol 3350 17 Gm Packet) 17 gm PO DAILYP PRN PRN Reason: Constipation Potassium Chloride (Potassium Chloride 20 Meq Tablet) 40 meq PO UD PRN PRN Reason: Potssium is 3-3.5 Potassium Chloride (Potassium Chloride 20 Meq Tablet) 40 meq PO UD PRN PRN Reason: Potassium < 3 Senna (Sennosides 1 Tablet) 2 tab PO DAILYP PRN PRN Reason: Constipation Sodium Biphosphate/Sodium Phosphate (Fleets Adult Enema) 1 dose [place] Q3-4DAYS PRN PRN Reason: Constipation Sodium Chloride (0.9 % Sodium Chloride 10 Ml Syringe) 10 ml IV Q8 [facility] Last Admin: 09/26/22 04:06 Dose: 10 ml Throat Lozenges (Benzocaine/Menthol 1 Lozenge) 1 lozenge PO PRN PRN PRN Reason: Sore Throat A/P Assessment and plan (1) Hip fracture, left: Status: Acute Comment: Mobilize with PT Discharge to Swing bed tomorrow. Re-start Eliquis post-op day 5. ASA 81mg bid until Eliquis re-started. D/C Lovenox f/u CHARLES 2 weeks for staple removal or billy out at [facility] and f/u at 6 weeks. weight bear as tolerated. Time Spent With Patient Time: Total time spent is greater than 50% in coordination of care (as documented) at patient's floor/unit and/or counseling patient: Initial: Total time with patient: Less than 40 minutes
[2022-09-26] MEDS ORDERED: LATANOPROSTENE BUNOD OU SCH (21:00)
[2022-09-26] MEDS: morphine 4 MG/ML VIAL IV PRN (21:36)
[2022-09-27] MEDS: morphine 4 MG/ML VIAL IV PRN (04:28)
[2022-09-27] MEDS: 0.9 % SODIUM CHLORIDE 10 ML SYRINGE IV SCH (04:28)
[2022-09-27 06:17] LABS: Basophils # (Auto) 0.01 K/mcL (0.00-0.30); Basophils % (Auto) 0.1 % (0.0-2.0); Eosinophils # (Auto) 0.07 K/mcL (0.00-0.70); Eosinophils % (Auto) 0.6 % (0.0-7.0); Hematocrit 36.7 % (34.1-44.9); Hemoglobin 11.7 g/dL (11.2-15.7); Lymphocytes # (Auto) 1.66 K/mcL (1.50-4.80); Lymphocytes % (Auto) 13.4 % (15.5-49.0); Mean Cell Volume 95.3 fL (80.0-100.0); Mean Corpuscular HGB Conc 31.9 g/dL (31.0-36.0); Mean Platelet Volume 10.2 fL (8.8-12.5); Monocytes # (Auto) 0.83 K/mcL (0.10-0.90); Monocytes % (Auto) 6.7 % (1.0-12.0); Neutrophils % (Auto) 78.6 % (38.0-78.0); Platelet Count 117 K/mcL (140-440); RBC 3.85 M/mcL (3.59-5.38); Red Cell Distribution Width 13.7 % (11.5-14.5); WBC 12.4 K/mcL (4.5-11.0)
[2022-09-27] MEDS: LEVOTHYROXINE 100 MCG TABLET PO SCH (07:07)
[2022-09-27] MEDS: ENOXAPARIN 40 MG/0.4 ML SYRINGE SQ SCH (09:16)
[2022-09-27] MEDS: ATORVASTATIN 10 MG TABLET PO SCH (09:16)
[2022-09-27] MEDS: OXYBUTYNIN CHLORIDE 5 MG TABLET PO SCH (09:16)
[2022-09-27] MEDS: DOCUSATE SODIUM 100 MG CAPSULE PO SCH (09:16)
[2022-09-27] MEDS: METOPROLOL SUCCINATE 50 MG TAB.XL.24H PO SCH (09:16)
[2022-09-27] MEDS: Timolol 0.5 % drops OP SCH (09:17)
[2022-09-27] MEDS: HYDROcodone/APAP 5/325MG TABLET PO PRN (09:19)
--- NOTE | 2022-09-27 10:36 | Discharge Summary ---
Discharge Provider Provider IMPORTANT FOLLOW-UP INFORMATION FOR PCP: Patient information: Note initiated : 09/27/22 at 10:27 am Service Date, if different from initiated Date: [] Patient: Rosy Bai 87 y/o F admitted on 09/24/22 for Possible Broken Hip. Chief Complaint: [] Date of admission: 09/24/22 14:56 Discharge date: 09/27/22 Primary care physician: Surjit Phillips Consults: 09/24/22 13:27 Consult to Physician [CONS] Routine Comment: Consulting Provider: Mustapha Coles Reason For Exam: Physician to Consult COURSE Hospital Course Hospital course: Ms. Bai is a 87 year old female who presented initially to [facility] after a fall. Patient was visiting family when she tripped on the gravel falling on her left hip with immediate pain and unable to bear weight. She is on Eliquis for atrial fibrillation. She also has history of hypertension, chronic kidney disease hypothyroidism. Patient was found to have left hip displaced femoral neck fracture and underwent prosthetic hemiarthroplasty by Dr. Coles on 09/25. Postoperative course was unremarkable. Her lab work remained stable. Vitals are stable. She has been working with PT and OT and progressing as expected. She has been followed up by orthopedics. She will now be discharged to swing bed. Per Ortho she will remain on aspirin 81 mg twice daily until postop day 5 and then this will be discontinued. Following that patient will restart her Eliquis on postop day 5. Weightbearing as tolerated. Follow-up in orthopedic clinic in 2 weeks for staple removal or billy out at [facility] and follow-up at 6 weeks. DISCHAGE DIAGNOSES: Left hip displaced femoral neck fracture status post prosthetic hemiarthroplasty by Dr. Coles on 09/25. Anticoagulation per orthopedics with aspirin 81 mg twice daily until postop day 5 and then discontinue aspirin and start Eliquis home dose. Weightbearing as tolerated. Acute hypoxic respiratory failure, resolved UTI: Received ceftriaxone, urine culture showed no growth and this was discontinued. Chronic atrial fibrillation: Eliquis/BB CKD III:Stable HTN/HLD: Stable Hypothyroidism. Stable PHYSICAL EXAM General: Alert, Awake, No acute Distress Eyes/N/T: EOMI, no scleral icterus, Head/Neck: neck supple, full ROM, CV: irreg, No murmurs, Pulm: Clear b/l, no wheezing/rhonchi/rales, no respiratory distress Abd: soft, nontender, +BS x4 Ext: Left hip status post hemiarthroplasty. Dressing on and appears clean, dry and intact, expected mild bruising Neuro: Alert, no focal deficits, moves all extremities, , sensations intact b/l upper/lower Psychiatric: Appropriate mood and affect Skin: warm/dry, normal color Total time taken >50 min Discharge diagnosis: Left hip displaced femoral neck fracture s/p left hemiarthroplasty, UTI Time Spent with Patient Time attestation: Total time spent providing and/or coordinating discharge services: Time spent: Greater than 30 minutes EXAM Constitutional Vitals: Temp Pulse Resp BP Pulse Ox O2 Del Method O2 Flow Rate 98.3 F 85 16 119/74 91 Room Air 1 09/27/22 07:14 09/27/22 07:14 09/27/22 07:14 09/27/22 07:14 09/27/22 07:14 09/27/22 08:00 09/27/22 02:58 Discharge Data Data Completed and Pending Labs on day of discharge: Labs from last 24 hours 09/27/22 05:15 WBC 12.4 H RBC 3.85 Hgb 11.7 Hct 36.7 MCV 95.3 MCH 30.4 MCHC 31.9 RDW 13.7 Plt Count 117 L MPV 10.2 Immature Gran % (Auto) 0.6 H Neut % (Auto) 78.6 H Lymph % (Auto) 13.4 L [place] % (Auto) 6.7 Eos % (Auto) 0.6 Baso % (Auto) 0.1 Lymph # (Auto) 1.66 [place] # (Auto) 0.83 Eos # (Auto) 0.07 Baso # (Auto) 0.01 Immature Gran # 0.07 H Absolute Neutrophils 9.74 H Discharge Plan Patient/Caregiver Discharge Instructions Activity: as per physical therapy Activity Restrictions/Additional Instructions: Stop Lovenox injections. Start Eliquis on post op day # 5, on 09-30-22 and stop Aspirin on post op day #5 as well. Prescriptions: No Action Premarin 0.625 mg/gram cream 0.625 mg VAGINAL .2xWEEK oxybutynin chloride 5 mg tablet 5 mg PO BID levothyroxine 100 mcg tablet 100 mcg PO QDAY pravastatin 40 mg tablet 40 mg PO QDAY timolol 0.5 % drops 1 drp OPHTHALMIC QAM Alphagan P 0.1 % drops 1 drp OPHTHALMIC TID latanoprost 0.005 % drops 1 drp OPHTHALMIC QHS metoprolol succinate 50 mg tablet extended release 24 hr 50 mg PO QDAY nitrofurantoin monohyd/m-cryst 100 mg capsule 1 cap PO QDAY Follow Up Plan Patient Disposition: [facility] Swing Bed QUALITY VTE Deep Vein Thrombosis/Pulmonary Embolism Present on Admission: No
--- NOTE | 2022-09-27 21:51 | EKG ---
[facility] Test Date: 2022-09-24 Pat Name: Rosy Bai Department: MEDR Room: 127 Gender: Female [employer] Director Intelligence Officer: : 1935 Requested By: Mustapha Franco Order Number: [id number] Reading MD: Kahlil Quach Measurements Intervals [place] Rate: 69 P: [place]: QRS: -26 QRSD: 100 T: 29 QT: 412 QTc: 441 Interpretive Statements Atrial fibrillation Borderline left axis deviation Probable posterior infarct, recent Electronically Signed On 09-27-2022 21:51:02 PDT by Kahlil Quach /[email or web address]/[email or web address]/[id number]
== END 2022-09-27 13:50 | disposition other institution (70) | DRG 521 ==
LOC: MEDSUR 14:56
PROVIDERS: ADMIT Internal Medicine; ATTEND Internal Medicine